=== PATIENT | female | born 1985 | race Caucasian/White ===

== ENCOUNTER 2024-03-18 12:00 | Emergency (ER) | payer MEDICAID ==
[~2024-03-18] VITALS: Ht 162.6 cm; Wt 69.9 kg
[2024-03-18] MEDS ORDERED: IBUP-1955 PO (13:30)
[2024-03-18 13:38] VITALS: BP 141/80; TEMP 98.4; O2SAT 99
== END 2024-03-18 13:38 | disposition home or self-care (01) ==
LOC: ER 12:13
DX: S46.011A Strain of muscle(s) and tendon(s) of the rotator cuff of right shoulder, initial encounter (principal); S53.401A Unspecified sprain of right elbow, initial encounter; S50.311A Abrasion of right elbow, initial encounter; S80.212A Abrasion, left knee, initial encounter; W01.0XXA Fall on same level from slipping, tripping and stumbling without subsequent striking against object, initial encounter; Y93.89 Activity, other specified; Y92.89 Other specified places as the place of occurrence of the external cause; Y99.8 Other external cause status
CPT/HCPCS: 73030-TC; 73080-TC